=== PATIENT | female | born 1985 ===

== ENCOUNTER 2018-09-25 17:27 | Emergency (ER) | payer SELFPAY ==
[2018-09-25 17:42] VITALS: O2SAT 100
--- NOTE | 2018-09-25 17:58 | ED PDOC ---
HPI: Abdomen Time Seen by Provider: 09/25/18 17:56 Chief Complaint (Nursing): Abdominal Pain Chief Complaint (Provider): with abdominal pain History Per: Patient Additional Complaint(s): 32-year-old female currently 16 weeks presents with generalized abdominal pain that started 2 days ago. Patient has mild nausea with no vomit ing. No vaginal bleeding or discharge. Patient does have slight dysuria. No fever or chills. This patient's first . She does not have any children and denies history of ectopic or miscarriages. PMD: [facility] Past Medical History Reviewed: Historical Data, Nursing Documentation, Vital Signs Vital Signs: Last Vital Signs Temp 98.4 F 09/25/18 17:38 Pulse 84 09/25/18 17:38 Resp 18 09/25/18 17:38 BP 121/75 09/25/18 17:38 Pulse Ox 100 09/25/18 17:38 - Medical History PMH: No Chronic Diseases Other PMH: - Surgical History Surgical History: No Surg Hx - Family History Family History: States: No Known Family Hx - Living Arrangements Living Arrangements: With Family - Social History Current smoker - smoking cessation education provided: No Alcohol: None Drugs: Denies - Allergies Allergies/Adverse Reactions: Allergies Allergy/AdvReac Type Severity Reaction Status Date / Time No Known Allergies Allergy Verified 09/25/18 17:38 Review of Systems ROS Statement: Except As Marked, All Systems Reviewed And Found Negative Constitutional: Negative for: Fever Gastrointestinal: Positive for: Nausea, Abdominal Pain. Negative for: Vomiting, Diarrhea, Constipation Genitourinary Female: Positive for: Dysuria. Negative for: Vaginal Discharge, Vaginal Bleeding Physical Exam - Reviewed Nursing Documentation Reviewed: Yes Vital Signs Reviewed: Yes - Physical Exam Appears: Positive for: Well, Non-toxic, No Acute Distress Skin: Positive for: Normal Color. Negative for: Rash Eye Exam: Positive for: Normal appearance Cardiovascular/Chest: Positive for: Regular Rate, Rhythm Respiratory: Positive for: Normal Breath Sounds Gastrointestinal/Abdominal: Positive for: Other (Gravid abdomen with slight suprapubic tenderness) Back: Negative for: L CVA Tenderness, R CVA Tenderness Extremity: Positive for: Normal ROM. Negative for: Pedal Edema Neurologic/Psych: Positive for: Alert, Oriented - Laboratory Results Result Diagrams: 09/25/18 18:59 09/25/18 18:59 - ECG O2 Sat by Pulse Oximetry: 100 Pulse Ox Interpretation: Normal Medical Decision Making Medical Decision Makin-year-old female with abdominal pain Plan: CBC CMP Beta Urine dip OB US PO tylenol Disposition - Clinical Impression Clinical Impression: Abdominal pain during - Patient ED Disposition Is Patient to be Admitted: Transfer of Care - Disposition Disposition: Transfer of Care Disposition Time: 20:07 Condition: STABLE Forms: [employer] (Arabic) Patient Signed Over To: Julia Clay Handoff Comments: Signed out pending ultrasound results and final disposition Results - Lab Results Lab Results: 09/25/18 09/25/18 09/25/18 19:25 18:59 18:59 WBC 8.7 RBC 3.82 Hgb 11.2 L Hct 32.3 L MCV 84.7 MCH 29.3 MCHC 34.6 RDW 14.3 Plt Count 253 MPV 7.8 Neut % (Auto) 75.3 H Lymph % (Auto) 16.4 L Bucks % (Auto) 7.2 Eos % (Auto) 0.8 Baso % (Auto) 0.3 Neut # (Auto) 6.6 Lymph # (Auto) 1.4 Bucks # (Auto) 0.6 Eos # (Auto) 0.1 Baso # (Auto) 0.0 Sodium 134 Potassium 4.3 Chloride 102 Carbon Dioxide 23 Anion Gap 13 BUN 6 L Creatinine 0.5 L Est GFR ( Amer) > 60 Est GFR (Non-Af Amer) > 60 Random Glucose 88 Calcium 9.6 Total Bilirubin 0.3 AST 25 ALT 29 Alkaline Phosphatase 212 H D Total Protein 7.9 Albumin 4.1 Globulin 3.8 Albumin/Globulin Ratio 1.1 Beta HCG, Quant 131723.00 Urine Color Yellow Urine Clarity Slighty-cloudy Urine pH 5.0 Ur Specific [place] 1.013 Urine Protein Negative Urine Glucose (UA) Neg Urine Ketones Trace Urine Blood Negative Urine Nitrate Negative Urine Bilirubin Negative Urine Urobilinogen 0.2-1.0 Ur Leukocyte Esterase Neg Urine RBC (Auto) 3 Urine Microscopic WBC 2 Ur Squamous Epith Cells 4 Urine Bacteria Occ H
[2018-09-25 19:05] LABS: BASO % 0.3 % (0.0-2.0); EOS # 0.1 K/uL (0.0-0.7); EOS % 0.8 % (0.0-4.0); HEMOGLOBIN 11.2 g/dL (12.0-16.0); LYMPH # 1.4 K/uL (1.0-4.3); LYMPH % 16.4 % (20.0-40.0); MEAN CELL VOLUME 84.7 fl (81.0-99.0); MEAN CORPUSCULAR HEMOGLOBIN 29.3 pg (27.0-31.0); MEAN CORPUSCULAR HGB CONC 34.6 g/dL (33.0-37.0); MEAN PLATELET VOLUME 7.8 fl (7.2-11.7); MONO # 0.6 K/uL (0.0-0.8); MONO % 7.2 % (0.0-10.0); NEUT # 6.6 K/uL (1.8-7.0); NEUT % 75.3 % (50.0-75.0); NRBC % 0.1 % (0.0-0.0); RBC 3.82 Mil/uL (3.80-5.20); RED CELL DISTRIBUTION WIDTH 14.3 % (11.5-14.5); WHITE BLOOD COUNT 8.7 K/uL (4.8-10.8)
[2018-09-25 19:14] LABS: ALB/GLOB RATIO 1.1 (1.0-2.1); ALBUMIN 4.1 g/dL (3.5-5.0); BLOOD UREA NITROGEN 6 mg/dl (7-17); CALCIUM 9.6 mg/dL (8.4-10.2); GFR NON-AFRICAN AMERICAN > 60
[2018-09-25 19:19] LABS: ALT/SGPT 29 U/L (9-52); AST/SGOT 25 U/L (14-36)
[2018-09-25 19:40] LABS: SQUAMOUS EPITHIAL 4 /hpf (0-5); URINE BACTERIA OCC (<OCC); URINE BILIRUBIN NEGATIVE (NEGATIVE); URINE BLOOD NEGATIVE (NEGATIVE); URINE CLARITY SLIGHTY-CLOUDY (Clear); URINE COLOR YELLOW (YELLOW); URINE GLUCOSE (UA) NEG (Normal); URINE LEUKOCYTE ESTERASE NEG Leu/uL (Negative); URINE PROTEIN NEGATIVE (NEGATIVE); URINE UROBILINOGEN 0.2-1.0 mg/dL (0.2-1.0)
--- NOTE | 2018-09-25 20:25 | ED PDOC ---
- Laboratory Results Result Diagrams: 09/25/18 18:59 09/25/18 18:59 - ECG O2 Sat by Pulse Oximetry: 100 Medical Decision Making Medical Decision Making: Pt endorsed to me by BESSIE Agustin at 8pm pending pelvic U/S Pelvic U/S: single, live, intrauterine gestation with a composite gestational age of 16 weeks, 6 days. EMERITA 03/06/19. Placenta is posterior and free of the cervical os. Pt re-evaluated and states that she continues to have mild abdominal cramping, "like her period" but states that this is mostly when she is doing activity or ambulating. Recommended to rest and drink lots of water when she develops these symptoms. Stable for d/c home. Pt to f/u with her [employer] with further concern or return to ER if noting bleeding, worsening cramping despite these measures. Disposition Counseled Patient/Family Regarding: Studies Performed, Diagnosis, Need For Followup - Clinical Impression Clinical Impression: Abdominal pain during - POA Present On Arrival: None - Disposition Referrals: Lashonda Xiong MD [Resident] - Disposition: Routine/Home Disposition Time: 23:52 Condition: STABLE Additional Instructions: When cramping, rest and drink water. If cramping persists, call your mountain guide or come back to ER. F/u with Dr. Xiong as planned. Forms: [employer] (Occitan) Print Language: ROMANIAN
[2018-09-25 23:52] VITALS: BP 121/57; PULSE 78; RESP 16; TEMP 98.2
--- NOTE | 2018-09-26 08:48 | US ---
Date of service: 09/25/2018 PROCEDURE: OB Pelvic Ultrasound HISTORY: 16 weeks w/generalized abdominal pain LMP: 06/02/2018 COMPARISON: None available. FINDINGS: UTERUS: Placenta: Posterior, fundal Presentation: Breech BPD: 3.7 cm compatible with estimated gestational age of 17 weeks, 1 day HC: 13.0 cm compatible with estimated gestational age of 16 weeks, 5 days AC: 10.5 cm compatible with estimated gestational age of 16 weeks, 3 days FL: 2.4 cm compatible with estimated gestational age of 17 weeks, 2 days Heart rate: 153 bpm. age (Ultrasound estimated): 16 weeks, 6 days Marjan-gestational hemorrhage: None Date of delivery (Ultrasound estimated) : 03/06/2019 EFW 172.1 grams +/-25.8 gram (6 ounces +/-1 ounce) CERVIX: Measures 3.7 cm. Long and closed. No cervical abnormality seen. FREE FLUID: None. OTHER FINDINGS: None. IMPRESSION: Single live intrauterine gestation with average ultrasound age of 16 weeks, 6 days. heart rate 153 beats per minute. Cervix long and closed.
== END 2018-09-25 23:50 | disposition home or self-care (01) ==
LOC: H.ER 17:27
DX: O26.892 Other specified pregnancy related conditions, second trimester (principal); Z3A.16 16 weeks gestation of pregnancy